=== PATIENT | male | born 1990 | race African-American/Black ===

== ENCOUNTER 2016-08-14 21:56 | Emergency (ER) | payer OTHER ==
[~2016-08-14] VITALS: Ht 175.3 cm; Wt 59.0 kg
[2016-08-14 22:16] VITALS: BP 141/85
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
[2016-08-14 22:19] VITALS: BP 141/85
== END 2016-08-14 22:20 ==
LOC: EMR 22:14
DX: S61.213A Laceration without foreign body of left middle finger without damage to nail, initial encounter (principal); F17.200 Nicotine dependence, unspecified, uncomplicated; Z02.89 Encounter for other administrative examinations; Y35.93XA Legal intervention, means unspecified, suspect injured, initial encounter; X58.XXXA Exposure to other specified factors, initial encounter; Y92.9 Unspecified place or not applicable; Y99.8 Other external cause status
CPT/HCPCS: 99282

== ENCOUNTER 2019-10-05 01:06 | Emergency (ER) | payer SELFPAY, OTHER ==
[~2019-10-05] VITALS: Ht 182.9 cm; Wt 77.1 kg
--- NOTE | 2019-10-05 01:10 | NUR ---
ED Nurse Note: pt presents to ED c/o cough x 2 days, pt is in custody of [facility] department officer badge #[id number]. pt is refusing all treatments, denies CXR or flu swabs. HTN noted in triage, pt has otherwise stable vital signs
[2019-10-05 01:20] VITALS: BP 144/100
[2019-10-05] MEDS ORDERED: PROMETHAZINE-D118 ML ORAL (01:25)
--- NOTE | 2019-10-05 01:30 | NUR ---
ER DISCHARGE NOTE: Patient is cleared to be discharged per ERMD, and is cleared to be booked. pt is aox4, on room air, with stable vital signs. pt and police officers ere given dc and prescription instructions, pt was able to verbalize understanding, pt id band removed without complications. pt is able to ambulate with steady gait. pt took all belongings.
[2019-10-05 01:31] VITALS: BP 144/100
--- NOTE | 2019-10-05 03:54 | Emergency Room Report ---
History of Present Illness General Chief Complaint: Medical Clearance Source: Patient, Law Enforcement Present Illness HPI 28-year-old male presents ED for detention clearance. Is in police custody. [employer] states that that they brought the patient here because he has been experiencing a cough for the last few days. Cough is dry. Denies fevers or chills. Denies shortness of breath. Denies recent travel. Denies any sick contacts. No other aggravating relieving factors. Denies any other associated symptoms COVID-19 risk:Travel to affect: No Has patient experienced ruff: No Allergies: Coded Allergies: No Known Allergies (Unverified , 08/14/16) Patient History Past Medical History: none Past Surgical History: none Pertinent Family History: none Social History: Denies: smoking, alcohol use, drug use Immunizations: UTD Reviewed Nursing Documentation: PMH: Agreed; PSxH: Agreed Nursing Documentation-PMH Past Medical History: No Stated History Review of Systems All Other Systems: negative except mentioned in HPI Physical Exam Vital Signs Date Time Temp Pulse Resp B/P (MAP) Pulse Ox O2 Delivery O2 Flow Rate FiO2 10/05/19 01:10 98.4 72 18 144/100 (115) 98 Room Air Sp02 EP Interpretation: reviewed, normal General Appearance: no apparent distress, alert, GCS 15, non-toxic Head: normocephalic, atraumatic Eyes: bilateral eye normal inspection, bilateral eye PERRL ENT: hearing grossly normal, normal pharynx, no angioedema, normal voice Neck: full range of motion, supple/symm/no masses Respiratory: chest non-tender, lungs clear, normal breath sounds, speaking full sentences Cardiovascular #1: regular rate, rhythm, no edema Cardiovascular #2: 2+ carotid (R), 2+ carotid (L), 2+ radial (R), 2+ radial (L) , 2+ dorsalis pedis (R), 2+ dorsalis pedis (L) Gastrointestinal: normal bowel sounds, non tender, soft, non-distended, no guarding, no rebound Rectal: deferred Genitourinary: normal inspection, no CVA tenderness Musculoskeletal: back normal, normal range of motion, gait/station normal, non- tender Neurologic: alert, motor strength/tone normal, oriented x3, sensory intact, responsive, speech normal Psychiatric: judgement/insight normal, memory normal, mood/affect normal, no suicidal/homicidal ideation Reflexes: 3+ bicep (R), 3+ bicep (L), 3+ tricep (R), 3+ tricep (L), 3+ knee (R) , 3+ knee (L) Lymphatic: no adenopathy Medical Decision Making Diagnostic Impression: Primary Impression: Cough Additional Impression: Medical clearance for incarceration ER Course Hospital Course 28 yo M presents with cough. in police custody Clinical course Patient placed on stretcher. Handcuffs. After initial history, physical exam reveals a male in no acute distress. Lungs clear. Afebrile. [employer] states that there is now concern about coronavirus so that is why anyone with a cough requires screening. Patient does not fit criteria for Department of Health screening for coronavirus. I did discuss the option of chest x-ray and flu swab and patient declined all testing. Patient hears well and can be medically cleared however I do discuss the possibility of isolation for the patient given his symptoms. WANG is aware Diagnosis - medical clearance for incarceration, cough stable and discharged into police custody with Rx Promethazine/DM. consider isolation for the patient. f/u with PMD. Last Vital Signs Date Time Temp Pulse Resp B/P (MAP) Pulse Ox O2 Delivery O2 Flow Rate FiO2 10/05/19 01:31 98.4 72 18 144/100 98 Room Air Status: improved Disposition: D/C TO LAW ENFORCEMENT IN CUST Condition: Stable Scripts D-Methorphan Hb/Prometh Hcl* (PROMETHAZINE-DM SYRUP*) 118 Ml Syrup 5 ML ORAL Q6H PRN for For Cough, #118 ML 0 Refills Prov: Naseem Mendoza MD 10/05/19 Referrals: MICHELLE THOMPSON,REFERRING (PCP) [facility] Departure Forms: Senior Care Clearance Additional Instructions: patient refused all testing. patient will need self-isolation Naseem Mendoza MD Oct 05, 2019 03:54
[2019-10-06] MEDS ORDERED: MECLIZINE HCL25 MG ORAL (11:15)
== END 2019-10-05 01:30 ==
LOC: EMR 01:23
DX: R05 Cough (principal)
CPT/HCPCS: 99282

== ENCOUNTER 2019-10-06 10:12 | Emergency (ER) | payer SELFPAY, OTHER ==
[~2019-10-06] VITALS: Ht 177.8 cm; Wt 63.5 kg
--- NOTE | 2019-10-06 10:11 | Emergency Room Report ---
History of Present Illness General Chief Complaint: Medical Clearance Source: Patient, EMS, Law Enforcement Present Illness HPI Patient is a 28-year-old male past medical history of methamphetamine abuse last used yesterday who presents to the ER complaining of dizziness. He states that since this morning when he stands up he feels like the room is spinning. He denies any headache, blurry vision or focal weakness. He denies any chest pain or shortness of breath. He denies any head trauma. He denies any fever or chills. He denies any history of similar symptoms. COVID-19 risk:Travel to affect: No Has patient experienced ruff: No Allergies: Coded Allergies: No Known Allergies (Unverified , 08/14/16) Patient History Past Medical History: none Past Surgical History: none Social History: Reports: smoking, drug use Nursing Documentation-[facility] History Of Psychiatric Problem: Yes - bipolar Review of Systems All Other Systems: negative except mentioned in HPI Physical Exam Vital Signs Date Time Temp Pulse Resp B/P (MAP) Pulse Ox O2 Delivery O2 Flow Rate FiO2 10/06/19 09:59 97.2 97 20 131/97 (108) 97 Room Air Sp02 EP Interpretation: reviewed, normal General Appearance: no apparent distress, alert, GCS 15, non-toxic Head: normocephalic, atraumatic Eyes: bilateral eye normal inspection, bilateral eye PERRL ENT: hearing grossly normal, normal pharynx, no angioedema, normal voice Neck: full range of motion, supple/symm/no masses Respiratory: chest non-tender, lungs clear, normal breath sounds, speaking full sentences Cardiovascular #1: regular rate, rhythm, no edema Gastrointestinal: normal bowel sounds, non tender, soft, non-distended, no guarding, no rebound Rectal: deferred Genitourinary: normal inspection, no CVA tenderness Musculoskeletal: back normal, normal range of motion, calf tenderness, gait/ station normal, non-tender Neurologic: alert, motor strength/tone normal, oriented x3, sensory intact, responsive, speech normal Psychiatric: judgement/insight normal, memory normal, mood/affect normal, no suicidal/homicidal ideation Skin: no rash Lymphatic: no adenopathy Medical Decision Making Diagnostic Impression: Primary Impression: Leukocytosis Additional Impression: Vertigo ER Course Patient presents with vertigo. Patient given IV fluids as well as oral meclizine. On reevaluation he states that his vertigo has improved. Labs demonstrate elevated white blood cell count of unknown significance. Patient denies having any fevers and is afebrile here. She denies any cough and chest x -ray demonstrates no evidence for pneumonia. This is is likely secondary to methamphetamine abuse. Patient denies any chest pain or shortness of breath. Patient is being released back to the [facility] and will be taken back to care home. After discussing risks and benefits of further diagnostics, treatment plans, as well as indications for and risks of admission, the patient is agreeable to being discharged home. I have explained that their evaluation and treatment in the emergency department today is an important step towards them achieving better health but that their evaluation today is not intended to replace further evaluation and treatment by a physician in their local clinic. I have explained that while the current findings suggest no immediate life threatening emergency they will require further evaluation and treatment by a physician of their choice in their area. They understand that it will be necessary for them to review the final reports of their ED visit with their clinic physician. We have reviewed indications for return to the Emergency Department. I have explained that additional time may need to pass and/or additional testing as an outpatient may be necessary before a definitive diagnosis can be made. They tell me they are willing to follow up as instructed within the timeframe I recommend. They appear to understand what we discussed. Additionally they understand that if they are unable to be seen by an outpatient physician they are welcome, and in fact should, return to the Emergency Department for a repeat evaluation. The patient is stable at time of discharge. Laboratory Tests Test 10/06/19 10:11 White Blood Count 14.2 K/UL (4.8-10.8) H Red Blood Count 5.04 M/UL (4.70-6.10) Hemoglobin 14.7 G/DL (14.2-18.0) Hematocrit 45.7 % (42.0-52.0) Mean Corpuscular Volume 91 FL (80-99) Mean Corpuscular Hemoglobin 29.2 PG (27.0-31.0) Mean Corpuscular Hemoglobin Concent 32.2 G/DL (32.0-36.0) Red Cell Distribution Width 11.7 % (11.6-14.8) Platelet Count 246 K/UL (150-450) Mean Platelet Volume 6.9 FL (6.5-10.1) Neutrophils (%) (Auto) 75.4 % (45.0-75.0) H Lymphocytes (%) (Auto) 18.7 % (20.0-45.0) L Monocytes (%) (Auto) 2.4 % (1.0-10.0) Eosinophils (%) (Auto) 2.5 % (0.0-3.0) Basophils (%) (Auto) 1.0 % (0.0-2.0) Sodium Level 141 MMOL/L (136-145) Potassium Level 4.3 MMOL/L (3.5-5.1) Chloride Level 104 MMOL/L (98-107) Carbon Dioxide Level 27 MMOL/L (21-32) Anion Gap 11 mmol/L (5-15) Blood Urea Nitrogen 12 mg/dL (7-18) Creatinine 1.1 MG/DL (0.55-1.30) Estimate Glomerular Filtration Rate > 60 mL/min (>60) Glucose Level 125 MG/DL (74-106) H Calcium Level 9.4 MG/DL (8.5-10.1) Magnesium Level 1.9 MG/DL (1.8-2.4) Chest X-Ray Diagnostic Results Chest X-Ray Diagnostic Results : Chest X-Ray Ordered: Yes # of Views/Limited/Complete: 1 View Indication: Other - veritgo EP Interpretation: Yes - MD Walter Interpretation: no consolidation, no effusion, no pneumothorax, no acute cardiopulmonary disease Impression: No acute disease Electronically Signed by: MD Walter Last Vital Signs Date Time Temp Pulse Resp B/P (MAP) Pulse Ox O2 Delivery O2 Flow Rate FiO2 10/06/19 09:59 97.2 97 20 131/97 (108) 97 Room Air Disposition: D/C TO LAW ENFORCEMENT IN CUST Condition: Stable Scripts Meclizine Hcl* (MECLIZINE*) 25 Mg Tablet 25 MG ORAL THREE TIMES A DAY PRN for for dizziness, #20 TAB Prov: Roxana Watson M.D. 10/06/19 Additional Instructions: The patient was provided with discharge instructions, notified to follow-up with a primary care doctor and or specialist in the next 24-48 hours, and to return to the ED if they have worsening of their symptoms. Please note that this report is being documented using [employer] technology. This can lead to erroneous entry secondary to incorrect interpretation by the dictating instrument. Roxana Watson M.D. Oct 06, 2019 10:11
[2019-10-06 10:12] VITALS: BP 131/97
[~2019-10-06 10:12] MED LIST: PROMETHAZINE-D118 ML ORAL
--- NOTE | 2019-10-06 10:12 | NUR ---
ED Nurse Note: Pt PATRICA from [facility] d/t dizziness started 3 hours ago. Pt is AOx3, VSS, on RA, afebrile on triage. Denies trauma/injuries/pain. Placed on bed, IV was established by second RN, pt tolerated well, followed by IV hydration. WANG kim at bedside.
--- NOTE | 2019-10-06 10:14 | NUR ---
ED Nurse Note: Pt denies any loss of consciousness. Haywood and apple juice provided to pt.
[2019-10-06] MEDS ORDERED: Meclizine 25mg tab ORAL PRN (10:15)
[2019-10-06] MEDS ORDERED: Meclizine 25mg tab ONE (10:18)
[2019-10-06 10:35] LABS: EOSINOPHILS % (AUTO) 2.5 % (0.0-3.0); HEMATOCRIT 45.7 % (42.0-52.0); HEMOGLOBIN 14.7 G/DL (14.2-18.0); LYMPHOCYTES % (AUTO) 18.7 % (20.0-45.0); MEAN CORPUSCULAR VOLUME 91 FL (80-99); MONOCYTES % (AUTO) 2.4 % (1.0-10.0); NEUTROPHILS % (AUTO) 75.4 % (45.0-75.0); PLATELET COUNT 246 K/UL (150-450); RED BLOOD COUNT 5.04 M/UL (4.70-6.10); RED CELL DISTRIBUTION WIDTH 11.7 % (11.6-14.8); WHITE BLOOD COUNT 14.2 K/UL (4.8-10.8)
[2019-10-06 10:43] LABS: ANION GAP 11 mmol/L (5-15); BLOOD UREA NITROGEN 12 mg/dL (7-18); CALCIUM 9.4 MG/DL (8.5-10.1); CARBON DIOXIDE 27 MMOL/L (21-32); CHLORIDE 104 MMOL/L (98-107); CREATININE 1.1 MG/DL (0.55-1.30); POTASSIUM 4.3 MMOL/L (3.5-5.1); SODIUM 141 MMOL/L (136-145)
--- NOTE | 2019-10-06 11:09 | NUR ---
ED Nurse Note: X-ray at bedside.
[2019-10-06] MEDS ORDERED: MECLIZINE HCL25 MG ORAL (11:15)
--- NOTE | 2019-10-06 11:15 | NUR ---
ED Nurse Note: X-ray done.
[2019-10-06 11:25] VITALS: BP 135/76
--- NOTE | 2019-10-06 11:27 | NUR ---
ER DISCHARGE NOTE: Patient is cleared to be discharged per ERMD, pt is aox4, on room air, with stable vital signs. pt and [employer] officer were given dc and prescription instructions, pt was able to verbalize understanding, pt id band and iv site removed without complications. pt is able to ambulate with steady gait. pt took all belongings.
--- NOTE | 2019-10-06 12:33 | Diagnostic Imaging Report ---
Indication: Cough Technique: One view of the chest Comparison: none Findings: Lungs and pleural spaces are clear. Heart size is normal. Impression: No acute process
== END 2019-10-06 11:28 ==
LOC: EDBD 10:12 → EMR 10:50
DX: D72.829 Elevated white blood cell count, unspecified (principal); R42 Dizziness and giddiness; F17.200 Nicotine dependence, unspecified, uncomplicated; F31.9 Bipolar disorder, unspecified
CPT/HCPCS: 36415; 71045; 80048; 83735; 85025; 93005; 96360; 99284; J7030